=== PATIENT | female | born 1975 | race American Indian/Alaskan Native ===

== ENCOUNTER 2016-08-26 11:41 | Emergency (ER) | payer SELFPAY ==
[2016-08-26 11:50] VITALS: BP 156/97
--- NOTE | 2016-08-26 13:06 | Emergency Department Report ---
- General Chief complaint: Skin Rash Stated complaint: POSSIBLE SPIDER BITE Time Seen by Provider: 08/26/16 12:04 Source: patient Mode of arrival: Ambulatory Limitations: No Limitations - History of Present Illness Initial comments: This is a 41-year-old female well-nourished with nontoxic or ill in appearance but presents with left posterior redness status post bug bite of unknown 4 days ago. Patient stated she was in a [place] she felt a tightness in her left posterior thigh. Patient states when she returned home there was a 1 cm erythema with no pus or drainage noted. The past 4 days patient stated redness has been increasing. Patient denies any allergies. Denies pus, itching, burning sensation, drainage, fever, chills, numbness, tingling, joint swelling, joint pain, chest pain or shortness of breath. Patient describes slight pain upon palpation and describes as aching with level of 7/10. Patient denies any drug allergies. Stated does not know last tetanus shot. MD complaint: insect bite/sting -: Gradual, days(s) (4) Tetanus Up to Date: unsure (as per patient) Location: LLE (posterior distal thigh) Severity: mild Severity scale (0 -10): 7 Quality: aching Consistency: constant Improves with: none Worsens with: none Associated symptoms: denies other symptoms Treatments Prior to Arrival: none - Related Data Previous Rx's Medication Instructions Recorded Last Taken Type Diclofenac Sodium [Voltaren] 4 gm TP Q6HR #100 gel..gram. 10/12/15 Unknown Rx Meloxicam [Mobic] 7.5 mg PO QDAY #30 tablet 10/12/15 Unknown Rx Cephalexin [Keflex] 500 mg PO Q8HR 7 Days 08/26/16 Unknown Rx Allergies Allergy/AdvReac Type Severity Reaction Status Date / Time No Known Allergies Allergy Unverified 08/26/16 11:46 Abscess Boil HPI - HPI Chief Complaint: Skin Rash Stated Complaint: POSSIBLE SPIDER BITE Time Seen by Provider: 08/26/16 12:04 Home Medications: Previous Rx's Medication Instructions Recorded Last Taken Type Diclofenac Sodium [Voltaren] 4 gm TP Q6HR #100 gel..gram. 10/12/15 Unknown Rx Meloxicam [Mobic] 7.5 mg PO QDAY #30 tablet 10/12/15 Unknown Rx Cephalexin [Keflex] 500 mg PO Q8HR 7 Days 08/26/16 Unknown Rx Allergies/Adverse Reactions: Allergies Allergy/AdvReac Type Severity Reaction Status Date / Time No Known Allergies Allergy Unverified 08/26/16 11:46 ED Review of Systems ROS: Stated complaint: POSSIBLE SPIDER BITE Other details as noted in HPI Constitutional: denies: chills, fever Eyes: denies: eye pain, eye discharge, vision change ENT: denies: ear pain, throat pain Respiratory: denies: cough, shortness of breath, wheezing Cardiovascular: denies: chest pain, palpitations Endocrine: no symptoms reported Gastrointestinal: denies: abdominal pain, nausea, diarrhea Genitourinary: denies: urgency, dysuria, discharge Musculoskeletal: denies: back pain, joint swelling, arthralgia Skin: denies: rash, lesions Neurological: denies: headache, weakness, paresthesias Psychiatric: denies: anxiety, depression Hematological/Lymphatic: denies: easy bleeding, easy bruising ED Past Medical Hx - Past Medical History Previous Medical History?: Yes Hx Hypertension: Yes (no meds) Additional medical history: hypothyroidism - Surgical History Past Surgical History?: No - Social History Smoking Status: Never Smoker Substance Use Type: Alcohol, Prescribed - Medications Home Medications: Home Medications Medication Instructions Recorded Confirmed Last Taken Type Diclofenac Sodium [Voltaren] 4 gm TP Q6HR #100 gel..gram. 10/12/15 Unknown Rx Meloxicam [Mobic] 7.5 mg PO QDAY #30 tablet 10/12/15 Unknown Rx Cephalexin [Keflex] 500 mg PO Q8HR 7 Days 08/26/16 Unknown Rx ED Physical Exam - General Limitations: No Limitations General appearance: alert, in no apparent distress - Head Head exam: Present: atraumatic, normocephalic, normal inspection - Eye Eye exam: Present: normal appearance, PERRL, EOMI. Absent: scleral icterus, conjunctival injection, nystagmus, periorbital swelling, periorbital tenderness Pupils: Present: normal accommodation - ENT ENT exam: Present: normal exam, normal orophraynx, mucous membranes moist, TM's normal bilaterally, normal external ear exam - Neck Neck exam: Present: normal inspection, full ROM. Absent: tenderness, meningismus, lymphadenopathy, thyromegaly - Respiratory Respiratory exam: Present: normal lung sounds bilaterally. Absent: respiratory distress, wheezes, rales, rhonchi, stridor, chest wall tenderness, accessory muscle use, decreased breath sounds, prolonged expiratory - Cardiovascular Cardiovascular Exam: Present: regular rate, normal rhythm, normal heart sounds. Absent: bradycardia, tachycardia, irregular rhythm, systolic murmur, diastolic murmur, rubs, gallop - GI/Abdominal GI/Abdominal exam: Present: soft, normal bowel sounds. Absent: distended, tenderness, guarding, rebound, rigid, diminished bowel sounds - Rectal Rectal exam: Present: deferred - Extremities Exam Extremities exam: Present: normal inspection, full ROM, normal capillary refill. Absent: tenderness, pedal edema, joint swelling, calf tenderness - Expanded Lower Extremity Exam Left Hip exam: Present: normal inspection, full ROM. Absent: tenderness, swelling, abrasion, laceration, ecchymosis, deformity, crepidus, dislocation, erythema, external rotation, internal rotation, shortening, pelvic stability Upper Leg exam: Present: normal inspection, full ROM, tenderness, erythema. Absent: swelling, abrasion, laceration, ecchymosis, deformity, crepidus, dislocation Knee exam: Present: normal inspection, full ROM. Absent: tenderness, swelling, abrasion, laceration, ecchymosis, deformity, crepidus, dislocation, erythema, effusion, pain w/ pronation/supination, posterior draw sign, pain/laxity with valgus, pain/laxity with varus, full knee extension Lower Leg exam: Present: normal inspection, full ROM. Absent: tenderness, swelling, abrasion, laceration, ecchymosis, deformity, crepidus, dislocation, erythema, palpable cord, Gabby's sign Ankle exam: Present: normal inspection, full ROM. Absent: tenderness, swelling , abrasion, laceration, ecchymosis, deformity, crepidus, dislocation, erythema, anterior draw sign Foot/Toe exam: Present: normal inspection, full ROM. Absent: tenderness, swelling, abrasion, laceration, ecchymosis, deformity, crepidus, dislocation, erythema, amputation, puncture wound, foreign body, calcaneal tenderness, tenderness at base of 5th metatarsal, nail avulsion, subungual hematoma Neuro vascular tendon exam: Present: no vascular compromise. Absent: abnormal cap refill, tendon deficit, extremity cold to touch, abnormal 2-point discrimination, decreased fine/light touch, foot drop, peroneal nerve deficit Gait: Positive: observed and normal 1 - 5 cm circular Erythema - Back Exam Back exam: Present: normal inspection, full ROM. Absent: tenderness, CVA tenderness (R), CVA tenderness (L), muscle spasm, paraspinal tenderness, vertebral tenderness, rash noted - Neurological Exam Neurological exam: Present: alert, oriented X3, CN II-XII intact, normal gait, reflexes normal - Psychiatric Psychiatric exam: Present: normal affect, normal mood - Skin Skin exam: Present: warm, dry, intact, normal color, other (5 cm circular erythema with no swelling noted. No fluctuance. Tender to touch. No pus, or drainage noted.). Absent: rash ED Course Vital Signs 08/26/16 11:46 Temperature 98.6 F Pulse Rate 76 Respiratory 20 Rate Blood Pressure 156/97 O2 Sat by Pulse 100 Oximetry - Reevaluation(s) Reevaluation #1: 08/26/16 13:08 Patient is sitting on the bed with and child and talking/smiling with no signs of distress noted. ED Medical Decision Making - Medical Decision Making Ed course: This is a 39-year-old female that presents with cellulitis 1- patient was examined by myself. The 5 cm erythema was marked with a permanent marker and patient was instructed to observe symptoms and signs of increasing redness, pus, drainage, or swelling and if symptoms present return to emergency room as soon as possible. 2- patient received Keflex at time of discharge and was instructed to finish full course at the bus as prescribed. 3- patient was also instructed to follow-up with her primary care doctor in 3-5 days 4- at time time of discharge, the patient does not seem toxic or ill in appearance. No acute signs of distress noted. Patient agrees to discharge treatment plan of care. No further questions noted by the patient. Critical care attestation.: If time is entered above; I have spent that time in minutes in the direct care of this critically ill patient, excluding procedure time. ED Disposition Clinical Impression: Cellulitis Qualifiers: Site of cellulitis: unspecified site Qualified Code(s): L03.90 - Cellulitis, unspecified Disposition: DC-01 TO HOME OR SELFCARE Is pt being admited?: No Does the pt Need Aspirin: No Condition: Stable Instructions: Cellulitis (ED), Cephalexin (By mouth) Additional Instructions: observe symptoms and signs of increasing redness, pus, drainage, or swelling passed the permanent marker and if symptoms present return to emergency room as soon as possible. Follow-up with her primary care doctor in 3-5 days. Finish full course of antibiotics as prescribed. Prescriptions: Cephalexin [Keflex] 500 mg PO Q8HR 7 Days Referrals: PRIMARY CAREMD [Primary Care Provider] - 3-5 Days SHELLEY ECHEVERRIA JR, MD [Staff Physician] - 3-5 Days [facility] [Outside] - 3-5 Days [facility] [Outside] - 3-5 Days Forms: Work/School Release Form(ED)
== END 2016-08-26 13:33 | disposition home or self-care (01) ==
LOC: ED 11:41
DX: L03.116 Cellulitis of left lower limb (principal); I10 Essential (primary) hypertension; E03.9 Hypothyroidism, unspecified; W57.XXXA Bitten or stung by nonvenomous insect and other nonvenomous arthropods, initial encounter; Y93.9 Activity, unspecified; Y92.9 Unspecified place or not applicable; Y99.9 Unspecified external cause status
CPT/HCPCS: 99282

== ENCOUNTER 2017-01-07 10:48 | Outpatient (CLI) | payer MEDICAID ==
--- NOTE | 2017-01-07 15:47 | Mammography Report ---
BILATERAL DIGITAL SCREENING MAMMOGRAM with CAD: 01/07/17 10:48:00 CLINICAL: Baseline screening. FINDINGS: The breasts are heterogeneously dense, which may obscure small masses. A right upper asymmetry on the MLO view requires additional imaging.No architectural distortion or suspicious calcifications.The left breast is negative. IMPRESSION: Right asymmetry requiring further workup. BI-RADS CATEGORY: 0 -- Additional Imaging Evaluation Required RECOMMENDATION: Recall for right true lateral and spot compression MLO views and right breast ultrasound if needed. ACR BI-RADS MAMMOGRAPHIC CODES: 0 = Needs additional imaging evaluation; 1 = Negative; 2 = Benign; 3 = Probably benign; 4 = Suspicious; 5 = Malignant; 6 = Known biopsy-proven malignancy COMMENT: 1. Dense breast tissue, i.e., adenosis, fibrocystic changes, etc., may obscure an underlying neoplasm. 2. Approximately 10% of cancers are not detected with mammography. 3. A negative mammography report should not delay biopsy if a clinically suspicious mass is present. COMMENT: Patient follow-up letters are generated via our [employer] application.
== END 2017-01-07 10:49 | disposition home or self-care (01) ==
LOC: SPVWC 10:48
PROVIDERS: ATTEND Obstetrics & Gynecology
DX: Z12.31 Encounter for screening mammogram for malignant neoplasm of breast (principal)
CPT/HCPCS: 77067; G0202

== ENCOUNTER 2017-01-20 08:27 | Outpatient (CLI) | payer MEDICAID ==
--- NOTE | 2017-01-21 11:02 | Mammography Report ---
RIGHT DIGITAL DIAGNOSTIC MAMMOGRAM : 01/20/17 08:27:00 CLINICAL: Recalled for asymmetry. COMPARISON:01/07/17 screening FINDINGS: Lateralmedial and spot compression MLO were performed and are negative. IMPRESSION: Negative Mammogram. BI-RADS CATEGORY: 1 -- Negative RECOMMENDATION: Routine mammographic screening in one year. ACR BI-RADS MAMMOGRAPHIC CODES: 0 = Needs additional imaging evaluation; 1 = Negative; 2 = Benign; 3 = Probably benign; 4 = Suspicious; 5 = Malignant; 6 = Known biopsy-proven malignancy COMMENT: 1. Dense breast tissue, i.e., adenosis, fibrocystic changes, etc., may obscure an underlying neoplasm. 2. Approximately 10% of cancers are not detected with mammography. 3. A negative mammography report should not delay biopsy if a clinically suspicious mass is present. COMMENT: Patient follow-up letters are generated via our [employer] application.
== END 2017-01-20 08:28 | disposition home or self-care (01) ==
LOC: SPVWC 08:27
PROVIDERS: ATTEND Obstetrics & Gynecology
DX: R92.8 Other abnormal and inconclusive findings on diagnostic imaging of breast (principal)
CPT/HCPCS: G0206-RT